=== PATIENT | male | born 1975 | race Two or more races ===

== ENCOUNTER 2023-11-03 14:07 | Inpatient (IN) | payer BC ==
[2023-11-03 14:54] VITALS: BMI 27.4
[2023-11-03] MEDS ORDERED: guaiFENesin 600 MG TABLET.ER (FP) PO PRN (18:26)
[2023-11-03] MEDS ORDERED: NALOXONE HCL 0.4 MG/ML VIAL IM PRN (18:26)
[2023-11-03] MEDS ORDERED: MAGNESIUM HYDROX 2400MG/30ML ORAL SUSPENSION 30 ML CUP PO PRN (18:26)
[2023-11-03] MEDS ORDERED: DICYCLOMINE HCL 10 MG CAPSULE PO PRN (18:26)
[2023-11-03] MEDS ORDERED: POLYETHYLENE GLYCOL (HEALTHYLAX) 3350 17 GM PACKET PO PRN (18:26)
[2023-11-03] MEDS ORDERED: IBUPROFEN 600 MG TABLET (FP) PO PRN (18:26)
[2023-11-03] MEDS ORDERED: MAG HYDROX/AL HYDROX/SIMETH 30 ML UNIT-DOSE CUP PO PRN (18:26)
[2023-11-03] MEDS ORDERED: ACETAMINOPHEN 325 MG TABLET (FP) PO PRN (18:26)
[2023-11-03] MEDS ORDERED: NALOXONE (NARCAN) HCL 4 MG/0.1 ML SPRAY NS PRN (18:26)
[2023-11-03] MEDS ORDERED: BENZOCAINE/MENTHOL (CHLORASEPTIC ) LOZENGE MM PRN (18:26)
[2023-11-03] MEDS ORDERED: IBUPROFEN 400 MG TABLET (FP) PO PRN (18:26)
[2023-11-03] MEDS ORDERED: ONDANSETRON *ODT* 4 MG TABLET SL PRN (18:26)
[2023-11-03] MEDS ORDERED: BENZONATATE 200 MG CAPSULE PO PRN (18:26)
[2023-11-03] MEDS ORDERED: LOPERAMIDE HCL 2 MG CAPSULE PO PRN (18:26)
[2023-11-03] MEDS: THIAMINE 100 MG TABLET PO SCH (22:23)
[2023-11-03] MEDS: MELATONIN 5 MG TABLETS PO SCH (22:23)
[2023-11-03] MEDS: MICONAZOLE NITRATE 14 GM/TUBE TUBE TP SCH (22:23)
[2023-11-04] MEDS: PRENATAL VITAMINS W/ FOLIC ACID TABLET (FP) PO SCH (10:39)
[2023-11-04] MEDS ORDERED: cloNIDine HCL 0.1 MG TABLET PO PRN (11:25)
[2023-11-04] MEDS: methaDONE HCL 10 MG TABLET (FOR DETOX USE ONLY) PO ONE (11:44)
[2023-11-05] MEDS: BISMUTH SUBSALICYLATE 524 MG/30 ML PO PRN (10:20)
[2023-11-05] MEDS: ASPIRIN 81 MG CHEWABLE TABLETS PO ONE (20:44)
[2023-11-06] MEDS: methaDONE HCL 10 MG TABLET (FOR DETOX USE ONLY) PO ONE (09:21)
[2023-11-06] MEDS: hydrOXYzine PAMOATE 25 MG CAPSULE (FP) PO PRN (22:26)
[2023-11-07] MEDS: METHOCARBAMOL 500 MG TABLET PO PRN (09:50)
[2023-11-08] MEDS: methaDONE HCL 10 MG TABLET (FOR DETOX USE ONLY) PO ONE (10:41)
[2023-11-08] MEDS: hydrOXYzine PAMOATE 25 MG CAPSULE (FP) PO PRN (17:55)
[2023-11-08] MEDS: MELATONIN 5 MG TABLETS PO SCH (21:13)
[2023-11-08] MEDS: traZODone HCL 50 MG TABLET (FP) PO PRN (22:00)
[2023-11-09 06:39] VITALS: BP 134/89; PULSE 60; RESP 17; TEMP 97.7
== END 2023-11-09 11:00 | disposition home or self-care (01) | DRG 773 ==
LOC: YASAS 14:07 → Y3N 18:25
PROVIDERS: ADMIT Allergy & Immunology; ATTEND Surgery
PROC: HZ2ZZZZ Detoxification Services for Substance Abuse Treatment (ICD-10-PCS; principal; 2023-11-03)
DX: F11.23 Opioid dependence with withdrawal (principal); F14.20 Cocaine dependence, uncomplicated; F10.20 Alcohol dependence, uncomplicated; F17.210 Nicotine dependence, cigarettes, uncomplicated; F19.282 Other psychoactive substance dependence with psychoactive substance-induced sleep disorder; F41.8 Other specified anxiety disorders; B19.20 Unspecified viral hepatitis C without hepatic coma; R07.9 Chest pain, unspecified; R00.1 Bradycardia, unspecified; Z56.0 Unemployment, unspecified; Z59.00 Homelessness unspecified
CPT/HCPCS: 0241U-QW; 36415; 71046-TC-FY; 80053; 80305; 80307; 84484; 85025; 85610; 85730; 93005; 93010; 99285-25

== ENCOUNTER 2023-11-05 21:15 | Emergency (ER) | payer BC ==
[2023-11-05 21:28] VITALS: BP 148/88; PULSE 46; RESP 16; TEMP 98.5; BMI 25.7
[2023-11-05 22:34] LABS: BASO % 0.2 % (0-2.0); HEMATOCRIT 34.5 % (35.4-49); LYMPH % 20.9 % (8-40); MCH 30.1 pg (25.7-33.7); MCHC 34.8 g/dl (32.0-35.9); MEAN CELL VOLUME 86.4 fl (80-96); MEAN PLT VOLUME 10.5 fl (7.5-11.1); NEUT % 67.9 % (42.8-82.8); PLATELET COUNT 145 10^3/uL (134-434); RBC 3.99 M/mm3 (4.00-5.60); RDW 13.8 % (11.9-15.9); WHITE BLOOD COUNT 5.7 K/mm3 (4.0-10.0)
[2023-11-05 22:50] LABS: INR 1.12 (0.83-1.09); PROTHROMBIN TIME (PATIENT) 12.6 SEC (9.7-13.0)
[2023-11-05 22:53] LABS: ACTIVATED PTT 29.7 SECONDS (25.2-36.5)
[2023-11-05 22:55] LABS: POTASSIUM 3.3 mmol/L (3.5-5.1)
[2023-11-05 22:58] LABS: CALCIUM 8.8 mg/dL (8.5-10.1)
[2023-11-05 22:59] LABS: ALBUMIN 3.4 g/dl (3.4-5.0); BLOOD UREA NITROGEN 9.3 mg/dL (7-18)
[2023-11-05 23:02] LABS: CREATININE 0.7 mg/dL (0.55-1.3)
[2023-11-05 23:03] LABS: BILIRUBIN,TOTAL 0.5 mg/dL (0.2-1)
[2023-11-05 23:04] LABS: TOT PROT 7.3 g/dl (6.4-8.2)
[2023-11-05] MEDS ORDERED: POTASSIUM CHLORIDE ORAL LIQUID 20 MEQ/15 ML ONE (23:23)
[2023-11-05] MEDS: POTASSIUM CHLORIDE ORAL LIQUID 20 MEQ/15 ML PO ONE (23:24)
== END 2023-11-06 00:01 ==
LOC: JER 21:15
DX: R07.89 Other chest pain (principal); Z20.822 Contact with and (suspected) exposure to COVID-19
CPT/HCPCS: 0241U-QW; 36415; 71046-TC-FY; 80053; 84484; 85025; 85610; 85730; 93005; 93010; 99285-25